=== PATIENT | female | born 1980 | race Two or more races ===

== ENCOUNTER 2024-12-04 11:31 | Emergency (ER) | payer MEDICAID, OTHER ==
[~2024-12-04] VITALS: Ht 160 cm; Wt 97.6 kg
[2024-12-04 12:52] VITALS: BP 161/91; PULSE 88; RESP 16; TEMP 98.8; O2SAT 96
--- NOTE | 2024-12-04 12:59 | ED.PDOC ---
Musculoskeletal HPI Comments 44-year-old presents with a chief complaint of a possible fracture to the left lateral malleolus. Onset occurred yesterday after jumping off of 5 ft step. [place] a sudden snap to the foot and pain has been persistent since. Worsens with ambulation and improves at rest. Pain rated at as moderate. Still able to bear weight Denies numbness tingling to the affected foot Denies previous surgeries to the ankle Denies redness or swelling around the ankle Denies fever chills night sweats nausea vomiting Chief Complaint: Lower Extremity Time Seen by MD: 12:04 Reviewed Notes: Nurses Notes, Medications, Allergies Allergies: Coded Allergies: NO KNOWN ALLERGIES (Unverified , 12/04/24) Information Source: Patient Mode of Arrival: Wheelchair Past Medical History PAST MEDICAL HISTORY: Denies Surgical History: Denies all surgeries INSURANCE COORDINATOR History: No Pertinent INSURANCE COORDINATOR History Family History Family History: Reviewed,noncontributory to illness Social History Smoker: Non-Smoker Alcohol: Denies ETOH Use Drugs: Denies Drug Use All Other Systems: Reviewed and Negative (PER HPI) Physical Exam General Appearance: No Apparent Distress, Normal HEENT: Normal ENT Inspection, Pharynx Normal, TMs Normal Neck: Full Range of Motion, Non-Tender, Normal, Normal Inspection Respiratory: Chest Non-Tender, Lungs Clear, No Accessory Muscle Use, No Respiratory Distress, Normal Breath Sounds Cardiovascular: No Edema, No JVD, No Murmur, No Gallop, Normal Peripheral Pulses, Regular Rate/Rhythm Breast Exam: Deferred Gastrointestinal: No Organomegaly, Non Tender, No Pulsatile Mass, Normal Bowel Sounds, Soft Genitalia: Deferred Pelvic: Deferred Rectal: Deferred Extremities: No calf tenderness, Normal capillary refill, Normal inspection, Normal range of motion, Non-tender, No pedal edema Musculoskeletal : Location: Left Extremity Location: Ankle (Mild swelling to the left lateral malleolus. No ecchymosis. No open wounds. TTP to the lateral malleolus. Dorsiflexion plantar flexion strong. DP 2+. 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 Was a procedure done?: No Differential Diagnosis EXT Differential Diagnosis: Fracture, Sprain, Dislocation X-Ray, Labs, Meds, VS Vital Signs Date Time Temp Pulse Resp B/P (MAP) Pulse Ox O2 Delivery O2 Flow Rate FiO2 12/04/24 12:52 88 16 96 Room Air 12/04/24 12:52 98.8 88 16 161/91 (114) 96 98.8 12/04/24 11:33 98.8 93 16 161/91 (114) 95 98.8 PATIENT: LEON HORTAACCT: [id number] UNIT: [id number] : 1980 LOC: ER ROOM / BED: / AGE / SEX: 44 / F ADM STATUS: REG ER SERVICE 1256 ORDERING PHYSICIAN: JONAH PADGETT NP PROCEDURE(s): LANKL - L ANKLE 3 VIEW REASON: r/o fracture ORDER NUMBER(s): [id number], ACCESSION NUMBER(s): [id number] CLINICAL INDICATION: r/o fracture TECHNIQUE: XY L ANKLE 3 VIEW Comparison: None FINDINGS/IMPRESSION: : No evidence of acute fracture. Moderate soft tissue swelling overlying the lateral malleolus. Borderline widening of the medial clear space which could be related to ligamentous injury. A plantar calcaneal enthesophyte is noted. ATED BY: JAN MCLAUGHLIN MD DICTATED DATE/TIME: 12/04/24 1324 SIGNED BY: JAN MCLAUGHLIN MD SIGNED DATE/TIME: 12/04/24 1324 CC: X-Ray, Labs, Meds, VS Comment Workup: XR Ankle Findings: No fracture or dislocation My wet read reveals no apparent acute bony abnormality, no FB, minimal to no soft tissue swelling and appropriate alignment. Presentation most consistent with Ankle Sprain. Patient does not currently demonstrate complications of sprain such as compartment syndrome, arterial or nerve injury. Differentials considered but not limited to: sprain, fracture, achilles tendon rupture, Maisonneuve fracture, distal fibula avulsion fracture, bi/tri-malleolar fracture, neurovascular compromise. The joint itself is non-irritable with ROM and there is no overlying redness and warmth to suggest injection. The Achilles and dorsiflexion tendon are non-tender and extension is intact. Disposition: Discharge. Supportive bracing provided. Patient was placed in an air-splint, WBAT. RICE. Strict return precautions and instructions to follow up with primary MD within 24-48 hours for further evaluation. May benefit from additional imaging such as stress views or MRI. Time of 1ST Reevaluation: 12:59 Reevaluation 1ST: Improved Patient Education/Counseling: Diagnosis, Treatment Family Education/Counseling: Diagnosis, Treatment Departure 1 Departure Time of Disposition: 13:29 Impression: Primary Impression: Left ankle sprain Qualified Codes: S93.402A - Sprain of unspecified ligament of left ankle, initial encounter Disposition: HOME / SELF CARE / HOMELESS Condition: Stable e-Prescriptions Naproxen (Naproxen) 375 Mg Tab 1 TAB PO BIDPC for 14 Days, #28 TAB 0 Refills Prov: JONAH PADGETT NP 12/04/24 Discharged With: Self Critical Care Note Critical Care Time?: No Stability Stability form required: No Heart Score Heart Score: Heart Score Response (Comments) Value History N/A 0 EKG N/A 0 Age N/A 0 Risk Factors N/A 0 Troponin N/A 0 Total 0 JONAH PADGETT NP December 04, 2024 12:59
--- NOTE | 2024-12-04 13:27 | DVH ---
CLINICAL INDICATION: r/o fracture TECHNIQUE: XY L ANKLE 3 VIEW Comparison: None FINDINGS/IMPRESSION: : No evidence of acute fracture. Moderate soft tissue swelling overlying the lateral malleolus. Borderline widening of the medial clear space which could be related to ligamentous injury. A plantar calcaneal enthesophyte is noted.
[2024-12-04] MEDS ORDERED: NAPR-957 PO (13:29)
== END 2024-12-04 13:52 | disposition home or self-care (01) ==
LOC: ER 11:34
DX: S93.492A Sprain of other ligament of left ankle, initial encounter (principal); X58.XXXA Exposure to other specified factors, initial encounter; Y93.39 Activity, other involving climbing, rappelling and jumping off; Y92.89 Other specified places as the place of occurrence of the external cause; Y99.8 Other external cause status
CPT/HCPCS: 73610